=== PATIENT | male | born 1950 | race Caucasian/White ===

== ENCOUNTER 2017-01-03 13:22 | Emergency (ER) | payer BC ==
[~2017-01-03] VITALS: Ht 182.9 cm; Wt 72.0 kg
[~2017-01-03 13:22] MED LIST: ASPI81 PO; CARV12.52 OR; CYAN2500 PO; D200CAP PO; HYDR-3533 PO; LISI-360 PO; PRAS10TA PO; ROSU40 PO
[2017-01-03 13:27] VITALS: BP 110/73; PULSE 96; RESP 16; TEMP 97.2; O2SAT 96
[2017-01-03] MEDS ORDERED: CARV6.252 PO (13:40)
[2017-01-03] MEDS ORDERED: PRAS10TA PO (13:40)
[2017-01-03] MEDS ORDERED: ROSU10 PO (13:40)
[2017-01-03] MEDS ORDERED: PROBCAP11 (13:40)
[2017-01-03] MEDS ORDERED: LISI10TA3 PO (13:40)
--- NOTE | 2017-01-03 13:41 | PD ---
HPI . hit left side of ribs about 930 am Chief Complaint: Injury Time Seen by Provider: 13:41 Travel History International Travel<30 days: No Contact w/Intl Traveler<30days: No Traveled to known affect area: No History of Present Illness HPI 66-year-old male with history of hypertension, hyperlipidemia and CHF here with complaints of left-sided rib pain. Apparently patient hit his left side on some furniture this morning around 9:30 AM. He is admitted to the [facility] at the site of injury. He denies any chest pain, nausea, vomiting, shortness of breath , diaphoresis or abdominal pain. PFSH Past Medical History Hx Anticoagulant Therapy: Yes (EFFIANT, BABY ASA) Cancer: No Cardiovascular Problems: Yes (htn on meds, stent) High Cholesterol: Yes Chest Pain: No Congestive Heart Failure: Yes COPD: Yes (emphysema) Coronary Artery Disease: Yes Diabetes: No Diminished Hearing: No Gastrointestinal Disorders: No Glaucoma: No Hepatitis: No Hiatal Hernia: No Hypertension: Yes Respiratory: No Integumentary: No Immunizations Current: Yes Thyroid Disease: No Past Surgical History Abdominal Surgery: Yes (APPENDECTOMY) Appendectomy: Yes Coronary Stent: Yes (X 1) Pacemaker: No Thoracic Surgery: No Tonsillectomy: Yes Other Surgery: Yes (TONSILLECTOMY,APPENDECTOMY,BILAT KNEE) Social History Alcohol Use: Yes (SOCIAL) Tobacco Use: No Substance Use: No Allergies-Medications (Allergen,Severity, Reaction): Coded Allergies: Penicillin (Verified Allergy, Severe, Nausea/Vomiting, 01/03/17) Reported Meds & Prescriptions Reported Meds & Active Scripts Active Reported Probiotic (Probiotic Product) 1 Cap Cap Crestor (Rosuvastatin Calcium) 10 Mg Tab 10 Mg PO HS Carvedilol 6.25 Mg Tab 6.25 Mg PO BID Effient (Prasugrel) 10 Mg Tab 10 Mg PO DAILY Lisinopril 10 Mg Tab 10 Mg PO DAILY Review of Systems General / Constitutional: No: Fever Eyes: No: Visual changes HENT: No: Headaches Cardiovascular: No: Chest Pain or Discomfort Respiratory: No: Shortness of Breath Gastrointestinal: No: Abdominal Pain Genitourinary: No: Dysuria Musculoskeletal: Positive: Pain (left sided rib pain) Skin: No Rash Neurologic: No: Weakness Psychiatric: No: Depression Endocrine: No: Polydipsia Hematologic/Lymphatic: No: Easy Bruising Physical Exam Narrative GENERAL: AAO x 3, no acute distress, Well-nourished, well-developed patient. SKIN: Warm and dry. No visible rashes. Left flank with small localized area of ecchymosis. Tender to touch. HEAD: Normocephalic and atraumatic. EYES: No scleral icterus. No injection or drainage. EOM intact, PERRLA ENT: No nasal drainage noted. Mucous membranes pink. Airway patent. NECK: Supple, trachea midline. No JVD. CARDIOVASCULAR: Regular rate and rhythm without murmurs, gallops, or rubs. RESPIRATORY: Breath sounds equal bilaterally. No accessory muscle use. No rhonchi or rales. lungs are clear b/l GASTROINTESTINAL: Abdomen soft, non-tender, nondistended. EXTREMITIES: No cyanosis or edema. BACK: Nontender without obvious deformity. No CVA tenderness. PSYCH: AAO x 3, normal affect. Data Data Last Documented VS Vital Signs Date Time Temp Pulse Resp B/P Pulse Ox O2 Delivery O2 Flow Rate FiO2 01/03/17 13:27 97.2 96 16 110/73 96 MDM Medical Decision Making Medical Screen Exam Complete: Yes Emergency Medical Condition: Yes Medical Record Reviewed: Yes Differential Diagnosis rib contusion, rib fracture, less likely pneumothorax, Narrative Course 66-year-old male with history of hypertension, hyperlipidemia and CHF here with complaints of left-sided rib pain. Apparently patient hit his left side on some furniture this morning around 9:30 AM. He is admitted to the pain at the site of injury. He denies any chest pain, nausea, vomiting, shortness of breath , diaphoresis or abdominal pain. Patient seen and examined. I explained that there is no indication to check a x-ray as he does not have any signs of respiratory distress. I explained that there is no definitive treatment for rib fractures. He was understanding. I advised to use ice and ibuprofen. Patient verbalized understanding of instructions, questions were answered, and thanked me for their care. I advised them if their condition worsens, please return to the nearest emergency room for further care. Diagnosis Primary Impression: Contusion of rib on left side Qualified Code: S20.212A - Contusion of rib on left side, initial encounter Patient Instructions: General Instructions, Rib Contusion (ED) Additional Instructions: Please return to emergency department if your symptoms return or worsen. Follow up with your primary care provider. Take medications as prescribed. The area will likely bruise and turn a purple/blue color. If you develop shortness of breath as we discussed, return to nearest emergency department. You can use ibuprofen for pain as needed. Ice the area. You can also use some muscle rub to the area. Disposition: 01 DISCHARGE HOME Condition: Stable Tiffany Lucas Jan 03, 2017 13:41
== END 2017-01-03 14:13 | disposition home or self-care (01) ==
LOC: PHEFT 13:22
DX: S20.212A Contusion of left front wall of thorax, initial encounter (principal); I10 Essential (primary) hypertension; I50.9 Heart failure, unspecified; E78.5 Hyperlipidemia, unspecified; E78.00 Pure hypercholesterolemia, unspecified; J44.9 Chronic obstructive pulmonary disease, unspecified; I25.10 Atherosclerotic heart disease of native coronary artery without angina pectoris; Z79.01 Long term (current) use of anticoagulants; W22.03XA Walked into furniture, initial encounter; Y99.8 Other external cause status
CPT/HCPCS: 99283